=== PATIENT | male | born 1995 | race Caucasian/White ===

== ENCOUNTER 2018-04-16 13:53 | Emergency (ER) | payer BC, OTHER ==
--- NOTE | 2018-04-16 13:59 | UC ---
Throat Pain/Nasal Anthony HPI - HPI Summary HPI Summary: 22 yo male presents with sore throat since yesterday. He tells me that his girlfriend was diagnosed with strep throat and he thinks he has it as well. In addition, he complains of a mildly purulent and tender rash along his penis and scrotum that began about a week ago and seems to be getting worse. He denies fever, chills, cough, SOB, chest pain. He is not concerned about STDs as he says he was fully tested a couple weeks ago. - History of Current Complaint Stated Complaint: SORE THROAT Time Seen by Provider: 04/16/18 13:59 Hx Obtained From: Patient Onset/Duration: Sudden Onset Severity: Moderate Pain Intensity: 6 Pain Scale Used: 0-10 Numeric - Allergies/Home Medications Allergies/Adverse Reactions: Allergies Allergy/AdvReac Type Severity Reaction Status Date / Time Sulfa (Sulfonamide Allergy Rash Verified 04/16/18 14:09 Antibiotics) PMH/Surg Hx/FS Hx/Imm Hx - Additional Past Medical History Additional PMH: None Previously Healthy: Yes - Surgical History Surgical History: None - Family History Known Family History: Positive: None - Social History Occupation: Employed Full-time Lives: With Family Alcohol Use: Occasionally Substance Use Type: None Smoking Status (MU): Never Smoked Tobacco Review of Systems Constitutional: Negative Skin: Other - Rash around penis shaft and scrotum ENT: Sore Throat Respiratory: Negative Cardiovascular: Negative Neurovascular: Negative Neurological: Negative Psychological: Negative All Other Systems Reviewed And Are Negative: Yes Physical Exam - Summary Physical Exam Summary: GENERAL: NAD. WDWN. No pain distress. SKIN: Genital region: Shaft of penis with dried exudate. Underside of penis and scrotum with moderate exudate yellow/white in color. Itchy and mildly tender. No penile drainage or lesions. HEENT: Head: AT/NC Eyes: Conjunctiva clear without inflammation or discharge. Ears: Hearing grossly normal. TMs intact, no bulging, erythema, or edema. Nose: Nasal mucosa pink and moist. NTTP maxillary and frontal sinus. Throat: Posterior oropharynx moderate erythema and 2+ tonsillar enlargement. No exudates. Uvula midline. No hoarse voice or muffled voice. NECK: Supple. Mildly ttp tonsillar LAD CHEST: CTAB. No r/r/w. No accessory muscle use. Breathing comfortably and in no distress. CV: RRR. Without m/r/g. Pulses intact. Brisk cap refill. NEURO: Alert. CN II-XII grossly intact. PSYCH: Age appropriate behavior. Triage Information Reviewed: Yes Vital Signs: Vital Signs: Temp Pulse Resp BP Pulse Ox 99.2 F 90 18 134/79 98 04/16/18 14:04 04/16/18 14:04 04/16/18 14:04 04/16/18 14:04 04/16/18 14:04 Laboratory Tests 04/16/18 14:12 Group A Strep Rapid Positive A Throat Pain/Nasal Course/Dx - Course Course Of Treatment: POC strep positive. Suspect yeast infection of groin - a culture was obtained and will be sent. Rx for amoxicillin and nystatin. - Differential Dx/Diagnosis Provider Diagnoses: Strep pharyngitis. Yeast infection groin Discharge - Sign-Out/Discharge Documenting (check all that apply): Discharge/Admit/Transfer - Discharge Plan Condition: Stable Disposition: HOME Prescriptions: Amoxicillin PO (*) [Amoxicillin 500 MG CAP*] 500 mg PO Q12H #20 cap Nystatin CREAM* [Nystatin Cream*] 1 applic TOPICAL BID #1 tube Patient Education Materials: Strep Throat (DC) Forms: *Work Release Referrals: No Primary Care Phys,NOPCP [Primary Care Provider] - Additional Instructions: If you develop a fever, shortness of breath, chest pain, new or worsening symptoms - please call your PCP or go to the ED. - Billing Disposition and Condition Condition: STABLE Disposition: Home
[2018-04-16 14:08] VITALS: BP 134/79
== END 2018-04-16 14:52 | disposition home or self-care (01) ==
LOC: UCEAST 13:53
DX: J02.0 Streptococcal pharyngitis (principal); B37.2 Candidiasis of skin and nail; Z88.2 Allergy status to sulfonamides
CPT/HCPCS: 87070; 87077; 87186; 87205; 87640; 87641; 87651; 99212; G0463

== ENCOUNTER 2018-05-26 21:25 | Emergency (ER) | payer SELFPAY ==
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
[2018-05-27 00:35] VITALS: BP 124/75
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
== END 2018-05-27 00:26 | disposition home or self-care (01) ==
LOC: ED 21:25
DX: M54.9 Dorsalgia, unspecified (principal); M54.2 Cervicalgia; Z88.2 Allergy status to sulfonamides
CPT/HCPCS: 72050; 72110; 99282

== ENCOUNTER 2018-08-07 15:06 | Emergency (ER) | payer BC ==
[2018-08-07 17:27] VITALS: BP 133/84
--- NOTE | 2018-08-07 18:00 | UC ---
Throat Pain/Nasal Anthony HPI - HPI Summary HPI Summary: 23 y/o male with no PMH, no recent meds, abx presents with 24 hours of throat pain, no cough, + chills, fever, no chest pain, no sinus pain, no N/V. - History of Current Complaint Chief Complaint: UCRespiratory Stated Complaint: SORE THROAT,CONGESTION Time Seen by Provider: 08/07/18 17:32 Hx Obtained From: Patient Onset/Duration: Sudden Onset, Lasting Days Severity: Moderate Pain Intensity: 3 Pain Scale Used: 0-10 Numeric Associated Signs & Symptoms: Positive: Dysphagia, Fever - Allergies/Home Medications Allergies/Adverse Reactions: Allergies Allergy/AdvReac Type Severity Reaction Status Date / Time Sulfa (Sulfonamide Allergy Rash Verified 08/07/18 17:27 Antibiotics) PMH/Surg Hx/FS Hx/Imm Hx Previously Healthy: Yes Other History Of: Negative For: Anticoagulant Therapy - Surgical History Surgical History: None Surgery Procedure, Year, and Place: denies - Family History Known Family History: Positive: None - Social History Alcohol Use: Occasionally Substance Use Type: None Smoking Status (MU): Never Smoked Tobacco Review of Systems Constitutional: Fever, Chills, Fatigue ENT: Sore Throat Is Patient Immunocompromised?: No All Other Systems Reviewed And Are Negative: Yes Physical Exam Triage Information Reviewed: Yes Appearance: Well-Appearing, No Pain Distress, Well-Nourished Vital Signs: Initial Vital Signs Temp 98.9 F 08/07/18 17:25 Pulse 83 08/07/18 17:25 Resp 18 08/07/18 17:25 BP 133/84 08/07/18 17:25 Pulse Ox 99 08/07/18 17:25 Vital Signs Reviewed: Yes ENT: Positive: Pharyngeal erythema - small exudates b/l tonsillar swelling, TMs normal - poor visualization due to cerumen, Uvula midline. Negative: TM bulging , TM dull, TM red, Sinus tenderness Neck: Positive: Supple, Nontender, Enlarged Nodes @ - submand b/l Respiratory: Positive: Chest non-tender, Lungs clear, Normal breath sounds, No respiratory distress Cardiovascular: Positive: RRR, No Murmur Throat Pain/Nasal Course/Dx - Course Course Of Treatment: rapid strep +, abx given - Differential Dx/Diagnosis Provider Diagnoses: strep A pharyngitis Discharge - Sign-Out/Discharge Documenting (check all that apply): Patient Departure All imaging exams completed and their final reports reviewed: No Studies - Discharge Plan Condition: Good Disposition: HOME Prescriptions: Amoxicillin PO (*) [Amoxicillin 500 MG CAP*] 500 mg PO Q12H #20 cap Patient Education Materials: Strep Throat (ED) Forms: *Work Release Referrals: No Primary Care Phys,NOPCP [Primary Care Provider] - Additional Instructions: - Increase fluids - Follow up with physician within 2-3 days if no improvement - go to ER with difficulty swallowing - Antibiotics as directed x 10 days - Not contagious after 24 hours of Antibiotics - Billing Disposition and Condition Condition: GOOD Disposition: Home
== END 2018-08-07 18:00 | disposition home or self-care (01) ==
LOC: UCEAST 15:06
DX: J02.0 Streptococcal pharyngitis (principal); Z88.2 Allergy status to sulfonamides
CPT/HCPCS: 87651; 99212; G0463